=== PATIENT | male | born 1960 | race Caucasian/White ===

== ENCOUNTER 2016-10-14 18:39 | Emergency (ER) | payer OTHER, MEDICAID ==
[2016-10-14] MEDS ORDERED: SODIUM CHLORIDE 0.9% 1,000 ML IV ONE ×2 (19:00→20:45)
[2016-10-14] MEDS ORDERED: diphenhdrAMINE HCL 50 MG/1 ML VL ONE (20:18)
[2016-10-14] MEDS ORDERED: LORazepam 2MG/ML-1ML VIAL ONE (20:18)
[2016-10-14] MEDS ORDERED: HALOPERIDOL LACTATE 5 MG/ML INJ VIAL ONE (20:18)
[2016-10-14] MEDS ORDERED: LORazepam 2MG/ML-1ML VIAL IM ONE (20:30)
[2016-10-14] MEDS ORDERED: diphenhdrAMINE HCL 50 MG/1 ML VL IM ONE (20:30)
[2016-10-14] MEDS ORDERED: HALOPERIDOL LACTATE 5 MG/ML INJ VIAL IM ONE (20:30)
[2016-10-14 20:43] LABS: Basophils # (auto) 0 uL; Basophils % (auto) 0.3 % (0.0-2.0); Eosinophils # (auto) 0.1 uL; Eosinophils % (auto) 1.1 % (0.0-7.0); Hematocrit 51.5 % (41.0-53.0); Hemoglobin 16.6 g/dL (13.5-17.5); Lymphocytes % (auto) 22.9 % (10.0-50.0); Mean Corpuscular Hemoglobin 30.5 pg (28.0-32.0); Mean Corpuscular Hgb Conc. 32.1 g/dL (32.0-36.0); Mean Corpuscular Volume 94.9 fL (80.0-100.0); Monocytes # (auto) 0.8 uL; Monocytes % (auto) 6.3 % (0.0-12.0); Neutrophils # (auto) 9.1 uL; Neutrophils % (auto) 69.4 % (37.0-80.0); Platelet Count (auto) 202 10^3/uL (140-450); Red Cell Distribution Width 14.6 % (11.6-16.0); White Blood Cell 13.1 10^3/uL (4.4-10.8)
[2016-10-14 21:43] LABS: Albumin 4.9 g/dL (3.4-5.0); BUN/Creatinine Ratio 9.5; Bilirubin, Total 0.7 mg/dL (0.2-1.0); Calcium 8.9 mg/dL (8.5-10.1); Potassium 3.6 mmol/L (3.5-5.1); Total Protein 8.8 g/dL (6.4-8.2)
[2016-10-15 03:52] VITALS: BP 132/86
== END 2016-10-15 04:07 ==
LOC: EDBD 18:39 → ER 18:44
DX: S02.2XXA Fracture of nasal bones, initial encounter for closed fracture (principal); F10.120 Alcohol abuse with intoxication, uncomplicated; R51 Headache; I11.0 Hypertensive heart disease with heart failure; I50.9 Heart failure, unspecified; J44.9 Chronic obstructive pulmonary disease, unspecified; F17.210 Nicotine dependence, cigarettes, uncomplicated; E72.51 Non-ketotic hyperglycinemia; N28.9 Disorder of kidney and ureter, unspecified; R74.0 Nonspecific elevation of levels of transaminase and lactic acid dehydrogenase [LDH]; Z88.0 Allergy status to penicillin; V43.52XA Car driver injured in collision with other type car in traffic accident, initial encounter; Y93.89 Activity, other specified; Y99.8 Other external cause status; Y92.89 Other specified places as the place of occurrence of the external cause
CPT/HCPCS: 36415; 70450; 70486; 71010; 72125; 80053; 80320; 84484; 85025; 94761; 96360; 96372; 99285; G0434; J1200; J1630; J2060; J7030

== ENCOUNTER → 2017-09-03 | Outpatient (CLI) | payer MEDICARE, MEDICAID | END | disposition home or self-care (01) | LOC: Rad HDHVI 12:22 | PROVIDERS: ATTEND Internal Medicine Cardiovascular Disease | DX: M51.34 Other intervertebral disc degeneration, thoracic region (principal); M48.061 Spinal stenosis, lumbar region without neurogenic claudication; M18.9 Osteoarthritis of first carpometacarpal joint, unspecified | CPT/HCPCS: 72128; 72131; 73130 ==

== ENCOUNTER → 2017-09-04 | Outpatient (CLI) | payer MEDICARE, MEDICAID | END | disposition home or self-care (01) | LOC: Rad HDHVI 08:03 | PROVIDERS: ATTEND Internal Medicine Cardiovascular Disease | DX: I08.3 Combined rheumatic disorders of mitral, aortic and tricuspid valves (principal); I10 Essential (primary) hypertension | CPT/HCPCS: 93306 ==

== ENCOUNTER → 2017-10-10 | Outpatient (CLI) | payer MEDICARE, MEDICAID ==
[~2017-10-10] VITALS: Ht 180.3 cm; Wt 79.4 kg
[2017-10-10 11:52] LABS: Basophils # (auto) 0.1 uL; Basophils % (auto) 0.8 % (0.0-2.0); Eosinophils # (auto) 0.4 uL; Eosinophils % (auto) 4.3 % (0.0-7.0); Hematocrit 46.4 % (41.0-53.0); Hemoglobin 15.4 g/dL (13.5-17.5); Lymphocytes # (auto) 2.3 uL; Lymphocytes % (auto) 28.1 % (10.0-50.0); Mean Corpuscular Hemoglobin 31.4 pg (28.0-32.0); Mean Corpuscular Hgb Conc. 33.2 g/dL (32.0-36.0); Mean Corpuscular Volume 94.6 fL (80.0-100.0); Monocytes # (auto) 0.7 uL; Monocytes % (auto) 8.7 % (0.0-12.0); Neutrophils # (auto) 4.7 uL; Neutrophils % (auto) 58.1 % (37.0-80.0); Nucleated Red Blood Cells % 0.2 %; Platelet Count (auto) 169 10^3/uL (140-450); Red Blood Cells 4.91 10^6/uL (4.5-5.90); Red Cell Distribution Width 14.3 % (11.8-14.3); White Blood Cell 8.2 10^3/uL (4.4-10.8)
[2017-10-10 11:57] LABS: Urine Blood Negative /uL (Negative)
[2017-10-10 12:19] LABS: Free T4 (Free Thyroxine) 1.09 ng/dL (0.89-1.76)
[2017-10-11 15:42] LABS: Albumin 4.3 g/dL (3.4-5.0); BUN/Creatinine Ratio 17.6; Bilirubin, Total 0.6 mg/dL (0.2-1.0); Calcium 8.9 mg/dL (8.5-10.1); Potassium 4.1 mmol/L (3.5-5.1); Total Protein 7.8 g/dL (6.4-8.2)
== END | disposition home or self-care (01) ==
LOC: Rad HDHVI 08:04
PROVIDERS: ATTEND Internal Medicine Cardiovascular Disease
DX: I10 Essential (primary) hypertension (principal); M77.9 Enthesopathy, unspecified; M54.9 Dorsalgia, unspecified; G89.4 Chronic pain syndrome; M19.90 Unspecified osteoarthritis, unspecified site; J44.9 Chronic obstructive pulmonary disease, unspecified; E78.00 Pure hypercholesterolemia, unspecified; D64.9 Anemia, unspecified; E03.9 Hypothyroidism, unspecified; E11.9 Type 2 diabetes mellitus without complications; E55.9 Vitamin D deficiency, unspecified; D51.9 Vitamin B12 deficiency anemia, unspecified; R53.81 Other malaise; N39.0 Urinary tract infection, site not specified; R22.2 Localized swelling, mass and lump, trunk
CPT/HCPCS: 36415; 78452; 80053; 80061; 81003; 82306; 82607; 83036; 84439; 84443; 85025; 93017; 96374; A9500

== ENCOUNTER → 2018-01-14 | Outpatient (CLI) | payer MEDICARE, MEDICAID ==
[2018-01-16 10:04] LABS: Hepatitis B Surface Antibody Positive
[2018-01-16 10:16] LABS: Hepatitis B Surface Antigen Negative (Negative)
[2018-01-16 10:38] LABS: Hepatitis A Total Antibody Positive
[2018-01-17 10:31] LABS: Hepatitis C Antibody Reactive (Negative)
[2018-01-17 10:47] LABS: Hepatitis B Core Total AB Positive
== END | disposition home or self-care (01) ==
LOC: LAB 11:55
PROVIDERS: ATTEND Internal Medicine
DX: J44.9 Chronic obstructive pulmonary disease, unspecified (principal); E11.9 Type 2 diabetes mellitus without complications; E78.00 Pure hypercholesterolemia, unspecified; E03.9 Hypothyroidism, unspecified; F17.200 Nicotine dependence, unspecified, uncomplicated; I11.0 Hypertensive heart disease with heart failure; I50.9 Heart failure, unspecified; Z20.5 Contact with and (suspected) exposure to viral hepatitis
CPT/HCPCS: 36415; 86704; 86706; 86708; 86803; 87340

== ENCOUNTER 2018-07-28 04:04 | Inpatient (IN) | payer MEDICARE, MEDICAID ==
[~2018-07-28] VITALS: Ht 180.3 cm; Wt 83.5 kg
[2018-07-28] MEDS ORDERED: DILTIAZEM HCL 25 MG/5 ML VIAL IV ONE ×3 (04:15→04:30)
[2018-07-28] MEDS ORDERED: DILTIAZEM HCL 60 MG TAB PO ONE (04:45)
[2018-07-28 05:56] LABS: Basophils # (auto) 0.1 uL; Basophils % (auto) 0.7 % (0.0-2.0); Eosinophils # (auto) 0.1 uL; Eosinophils % (auto) 0.8 % (0.0-7.0); Hematocrit 42.5 % (41.0-53.0); Hemoglobin 14.3 g/dL (13.5-17.5); Lymphocytes # (auto) 2.3 uL; Lymphocytes % (auto) 24.1 % (10.0-50.0); Mean Corpuscular Hemoglobin 32.8 pg (28.0-32.0); Mean Corpuscular Hgb Conc. 33.6 g/dL (32.0-36.0); Mean Corpuscular Volume 97.6 fL (80.0-100.0); Monocytes # (auto) 0.6 uL; Monocytes % (auto) 5.9 % (0.0-12.0); Neutrophils # (auto) 6.5 uL; Neutrophils % (auto) 68.5 % (37.0-80.0); Nucleated Red Blood Cells % 0.2 %; Platelet Count (auto) 155 10^3/uL (140-450); Red Blood Cells 4.35 10^6/uL (4.5-5.90); Red Cell Distribution Width 13.7 % (11.8-14.3); White Blood Cell 9.4 10^3/uL (4.4-10.8)
[2018-07-28 06:04] LABS: INR 1.07 (0.9-1.15); Partial Thromboplastin Time 26.7 sec (23.78-33.04); Prothrombin Time 11.4 sec (9.27-12.13)
[2018-07-28 06:11] LABS: Albumin 3.6 g/dL (3.4-5.0); Calcium 8.5 mg/dL (8.5-10.1); Magnesium 2.1 mg/dL (1.6-2.6); Potassium 3.7 mmol/L (3.5-5.1)
[2018-07-28 06:16] LABS: BUN/Creatinine Ratio 14.8; Bilirubin, Total 0.8 mg/dL (0.2-1.0); Total Protein 7.2 g/dL (6.4-8.2)
[2018-07-28] MEDS ORDERED: LACTULOSE 20Gm/30ML SOLN PO PRN (08:45)
[2018-07-28] MEDS ORDERED: AMIODARONE HCL 900 MG in DEXTROSE 500 ML IV SCH (08:59)
[2018-07-28] MEDS ORDERED: AMIODARONE HCL 150 MG in D5W 5% 100 ML IV ONE (09:00)
[2018-07-28] MEDS ORDERED: HYDROcodone-ACET 5/325MG TAB PO PRN (09:00)
[2018-07-28] MEDS ORDERED: MORPHINE SULFATE 4 MG/ML SYR/VIAL IV PRN ×2 (09:00)
[2018-07-28] MEDS ORDERED: TEMAZEPAM 15 MG CAP PO PRN (09:00)
[2018-07-28] MEDS ORDERED: ACETAMINOPHEN 325 MG TAB PO PRN (09:00)
[2018-07-28] MEDS ORDERED: NITROGLYCERIN 0.4 MG SL TAB SL PRN (09:00)
[2018-07-28] MEDS ORDERED: DOCUSATE SOD 100 MG CAP PO PRN (09:00)
[2018-07-28] MEDS ORDERED: IOHEXOL 350 MG/ML 100ML IJ ONE (09:09)
[2018-07-28] MEDS ORDERED: PROMETHAZINE HCL 25 MG/ML 1ML IV PRN (09:15)
[2018-07-28] MEDS: LOSARTAN POTASSIUM 50 MG TAB PO SCH (10:15)
[2018-07-28] MEDS: FUROSEMIDE 40 MG/4 ML VIAL IV SCH (10:15)
[2018-07-28] MEDS: FAMOTIDINE 20 MG TAB PO SCH ×2 (10:16→22:36)
[2018-07-28] MEDS: CARVEDILOL 3.125 MG TAB PO SCH ×2 (10:16→22:37)
[2018-07-28] MEDS: POTASSIUM CHL 10 Meq TABLET PO SCH (10:16)
[2018-07-28] MEDS: MULTIPLE VITAMIN TAB PO SCH (10:17)
[2018-07-28] MEDS: ENOXAPARIN SOD 40 MG/0.4 ML SYRINGE SC SCH (10:17)
[2018-07-28] MEDS: SODIUM CHLOR 0.9% PF (SALINE LOCK) 10ML VIAL/SYR IV SCH ×2 (14:03→21:26)
[2018-07-28] MEDS: AMIODARONE HCL 900 MG in DEXTROSE 500 ML IV SCH (17:13)
[2018-07-28] MEDS ORDERED: DIGOXIN (250MCG/ML) 2 ML AMPULE IV ONE ×2 (20:30→21:45)
[2018-07-29] MEDS: DIGOXIN (250MCG/ML) 2 ML AMPULE IV SCH ×2 (04:52→09:35)
[2018-07-29] MEDS: SODIUM CHLOR 0.9% PF (SALINE LOCK) 10ML VIAL/SYR IV SCH ×3 (04:53→21:34)
[2018-07-29 05:23] VITALS: BP 149/91
[2018-07-29] MEDS ORDERED: FURO20TA3 PO (06:20)
[2018-07-29] MEDS ORDERED: LOSA-46 PO (06:20)
[2018-07-29] MEDS ORDERED: CARV6.2551 PO (06:20)
[2018-07-29 07:27] LABS: Basophils # (auto) 0.1 uL; Basophils % (auto) 0.8 % (0.0-2.0); Eosinophils # (auto) 0 uL; Eosinophils % (auto) 0.4 % (0.0-7.0); Hemoglobin 14.3 g/dL (13.5-17.5); Lymphocytes # (auto) 2.6 uL; Lymphocytes % (auto) 26.6 % (10.0-50.0); Mean Corpuscular Hemoglobin 32.6 pg (28.0-32.0); Mean Corpuscular Hgb Conc. 33.4 g/dL (32.0-36.0); Mean Corpuscular Volume 97.7 fL (80.0-100.0); Monocytes # (auto) 0.7 uL; Monocytes % (auto) 7.6 % (0.0-12.0); Neutrophils # (auto) 6.3 uL; Neutrophils % (auto) 64.6 % (37.0-80.0); Nucleated Red Blood Cells % 0.3 %; Platelet Count (auto) 153 10^3/uL (140-450); Red Cell Distribution Width 14.2 % (11.8-14.3); White Blood Cell 9.8 10^3/uL (4.4-10.8)
[2018-07-29 07:47] LABS: Albumin 3.8 g/dL (3.4-5.0); BUN/Creatinine Ratio 13.8; Potassium 4.5 mmol/L (3.5-5.1)
[2018-07-29 07:49] LABS: Bilirubin, Total 1.8 mg/dL (0.2-1.0); Total Protein 7.4 g/dL (6.4-8.2)
[2018-07-29 08:30] VITALS: BP 139/75
[2018-07-29] MEDS: FUROSEMIDE 40 MG/4 ML VIAL IV SCH (09:32)
[2018-07-29] MEDS: CARVEDILOL 3.125 MG TAB PO SCH (09:32)
[2018-07-29] MEDS: LOSARTAN POTASSIUM 50 MG TAB PO SCH (09:33)
[2018-07-29] MEDS: POTASSIUM CHL 10 Meq TABLET PO SCH (09:33)
[2018-07-29] MEDS: ENOXAPARIN SOD 40 MG/0.4 ML SYRINGE SC SCH (09:34)
[2018-07-29] MEDS: DIGOXIN 0.25 MG TAB PO SCH (09:34)
[2018-07-29] MEDS: MULTIPLE VITAMIN TAB PO SCH (09:34)
[2018-07-29] MEDS: FAMOTIDINE 20 MG TAB PO SCH ×2 (09:34→21:34)
[2018-07-29] MEDS: AMIODARONE HCL 900 MG in DEXTROSE 500 ML IV SCH (09:36)
[2018-07-29] MEDS ORDERED: DILTIAZEM HCL 25 MG/5 ML VIAL IV ONE (11:00)
[2018-07-29 12:00] VITALS: BP 131/88
[2018-07-29 15:52] VITALS: BP 135/101
[2018-07-29 19:47] VITALS: BP 136/91
[2018-07-30 05:34] LABS: Basophils # (auto) 0 uL; Basophils % (auto) 0.4 % (0.0-2.0); Eosinophils # (auto) 0.1 uL; Eosinophils % (auto) 1.2 % (0.0-7.0); Hematocrit 45.4 % (41.0-53.0); Hemoglobin 15.3 g/dL (13.5-17.5); Lymphocytes # (auto) 2.2 uL; Lymphocytes % (auto) 22.4 % (10.0-50.0); Mean Corpuscular Hemoglobin 32.9 pg (28.0-32.0); Mean Corpuscular Hgb Conc. 33.8 g/dL (32.0-36.0); Mean Corpuscular Volume 97.4 fL (80.0-100.0); Monocytes # (auto) 0.9 uL; Neutrophils # (auto) 6.4 uL; Nucleated Red Blood Cells % 0.2 %; Platelet Count (auto) 152 10^3/uL (140-450); Red Blood Cells 4.66 10^6/uL (4.5-5.90); Red Cell Distribution Width 14.1 % (11.8-14.3); White Blood Cell 9.6 10^3/uL (4.4-10.8)
[2018-07-30] MEDS: SODIUM CHLOR 0.9% PF (SALINE LOCK) 10ML VIAL/SYR IV SCH ×2 (05:48→13:52)
[2018-07-30 06:46] LABS: Anion Gap 10 (5-15); BUN/Creatinine Ratio 16.3; Blood Urea Nitrogen 22 mg/dL (7-18); Calcium 8.8 mg/dL (8.5-10.1); Carbon Dioxide 23 mmol/L (21-32); Chloride 105 mmol/L (98-107); Cholesterol 112 mg/dL (< 200); GFR African American 70 mL/min; GFR Non-African American 57 mL/min; Glucose 89 mg/dL (74-106); HDL Cholesterol 26 mg/dL (40-59); LDL Cholesterol 87 mg/dL (< 100); Magnesium 2.1 mg/dL (1.6-2.6); Potassium 3.6 mmol/L (3.5-5.1); Sodium 138 mmol/L (136-145); Triglycerides 81 mg/dL (< 150)
[2018-07-30 08:00] VITALS: BP 160/101
[2018-07-30] MEDS: LOSARTAN POTASSIUM 50 MG TAB PO SCH (08:43)
[2018-07-30] MEDS: DIGOXIN 0.25 MG TAB PO SCH (08:44)
[2018-07-30 10:00] VITALS: BP 136/68
[2018-07-30] MEDS ORDERED: DILTIAZEM HCL 120MG ER CAP PO SCH (10:00)
[2018-07-30] MEDS: ENOXAPARIN SOD 40 MG/0.4 ML SYRINGE SC SCH (11:06)
[2018-07-30] MEDS: FUROSEMIDE 40 MG/4 ML VIAL IV SCH (11:06)
[2018-07-30] MEDS: POTASSIUM CHL 10 Meq TABLET PO SCH (11:06)
[2018-07-30] MEDS: FAMOTIDINE 20 MG TAB PO SCH (11:06)
[2018-07-30] MEDS: MULTIPLE VITAMIN TAB PO SCH (11:06)
[2018-07-30 11:50] VITALS: BP 139/78
[2018-07-30 15:22] VITALS: BP 132/68
[2018-07-30] MEDS ORDERED: AMIO200T33 PO (15:31)
[2018-07-30] MEDS ORDERED: DIGO50SO2 PO (15:35)
== END 2018-07-30 17:40 | disposition home or self-care (01) | DRG 291 ==
LOC: ER 04:05 → OVERFLOW 04:06 → DOU IN ICU 07-29 03:50
PROVIDERS: ADMIT Internal Medicine; ATTEND Internal Medicine
DX: I13.0 Hypertensive heart and chronic kidney disease with heart failure and stage 1 through stage 4 chronic kidney disease, or unspecified chronic kidney disease (principal); I50.43 Acute on chronic combined systolic (congestive) and diastolic (congestive) heart failure; N17.0 Acute kidney failure with tubular necrosis; I48.92 Unspecified atrial flutter; J44.9 Chronic obstructive pulmonary disease, unspecified; I25.10 Atherosclerotic heart disease of native coronary artery without angina pectoris; I25.5 Ischemic cardiomyopathy; I48.91 Unspecified atrial fibrillation; N18.9 Chronic kidney disease, unspecified; B19.20 Unspecified viral hepatitis C without hepatic coma; Z91.19 Patient's noncompliance with other medical treatment and regimen; Z88.0 Allergy status to penicillin
CPT/HCPCS: 36415; 71045; 71275; 80048; 80053; 80061; 83735; 83880; 84443; 84484; 85025; 85379; 85610; 85730; 87081; 93005; 93970; 96374; 96376; 99291; A6257; G0378; J7060